=== PATIENT | female | born 1960 | race Caucasian/White ===

== ENCOUNTER 2021-10-07 16:11 | Inpatient (IN) | payer OTHER, SELFPAY ==
[2021-10-07 17:13] LABS: #Basophils 0.1 10x3/uL (0.0-0.2); #Monocytes 1.2 10x3/uL (0.0-1.1); #Neutrophils 11.6 10x3/uL (1.5-8.4); %Basophils 0.6 % (0.0-2.0); %Eosinophils 0.1 % (0.0-6.0); %Monocytes 8.1 % (0.0-10.0); %Neutrophils 78.6 % (40.0-75.0); Hemoglobin 6.5 g/dL (12.0-15.5); Mean Corpuscular HGB CONC 28.6 g/dL (32.0-36.0); Mean Corpuscular Hemoglobin 24.3 pg (27.0-33.0); Mean Corpuscular Volume 84.7 fl (81.6-98.3); Mean Platelet Volume 9.7 fl (7.4-10.4); Platelet Count 340 10x3/uL (150-450); Red Blood Cell (RBC) Count 2.68 10x6/uL (3.90-5.03); White Blood Cell (WBC) Count 14.8 10x3/uL (3.5-10.5)
[2021-10-07 17:23] LABS: INR-International Normal Ratio 1.3; PTT 24.7 sec (22.0-33.0)
[2021-10-07 17:29] LABS: ALT (SGPT) 17 U/L (8-55); AST (SGOT) 48 U/L (5-34); Albumin 2.4 g/dL (3.5-5.0); Alkaline Phosphatase 112 U/L (40-110); Anion Gap 17 mmol/L (10-20); BUN (Urea Nitrogen) 25 mg/dL (9.8-20.1); Bilirubin, Total 2.1 mg/dL (0.2-1.2); Calc. Creatinine Clearance 0 mL/min (70-130); Calcium 8.7 mg/dL (7.8-10.44); Carbon Dioxide 26 mmol/L (22-29); Chloride 98 mmol/L (98-107); Globulin 4.2 g/dL (2.4-3.5); Glucose 138 mg/dL (70-105); Iron 30 ug/dL (50-170); Iron Binding Capacity, Total 331 mcg/dL (265-497); Lipase 41 U/L (8-78); Potassium 4.7 mmol/L (3.5-5.1); Protein, Total 6.6 g/dL (6.0-8.3); Sodium 136 mmol/L (136-145)
[2021-10-07] MEDS ORDERED: Ondansetron PF 4 MG/2 ML Vial ONE (17:40)
[2021-10-07] MEDS ORDERED: Pantoprazole 40 MG VIAL ONE ×2 (17:41)
[2021-10-07 18:13] LABS: Anisocytosis SLIGHT = 6-15 cells (100X) (0-5/hpf); Hypochromia MODERATE=16-30 cells (100X) (0-5/hpf); Polychromasia SLIGHT = 2-3 cells (100X) (0-2/hpf)
[2021-10-07 18:14] LABS: Platelet Morphology Comment Appears Adequate; Stomatocytes SLIGHT = 2-5 cells (100X) (0-1/hpf)
[2021-10-07 22:49] LABS: Bilirubin Neg (Negative); Blood, Urine 25 (Negative); Clarity Clear (Clear); Glucose, Urine (Dipstick) Normal (Negative); Ketone, Urine 5 mg/dL (Negative); Leukocyte Negative (Negative); Nitrite Negative (Negative); Protein, Urine (Dipstick) 15 mg/dl (Neg-Trace); Urobilinogen Normal mg/dL (Less than 2)
[2021-10-07 23:10] LABS: Bacteria/HPF 3+ HPF (None Seen); Squamous Epithelial 0-3 HPF (0-3)
[2021-10-08] MEDS ORDERED: Pantoprazole 40 MG VIAL ONE (01:37)
[2021-10-08 01:57] LABS: Hemoglobin 6.5 g/dL (12.0-15.5)
[2021-10-08] MEDS ORDERED: Pantoprazole 80 MG, Admixture Fee 1 EACH in Sodium Chloride 0.9% 100 ML IVP SCH (02:00)
[2021-10-08] MEDS ORDERED: Octreotide Acetate 50 MCG/ML AMP SLOW IVP SCH (02:00)
[2021-10-08] MEDS ORDERED: Sodium Chloride 0.9% 1,000 ML IV SCH ×2 (02:00→06:00)
[2021-10-08 02:04] LABS: #Basophils 0.1 10x3/uL (0.0-0.2); #Monocytes 1.8 10x3/uL (0.0-1.1); #Neutrophils 11.5 10x3/uL (1.5-8.4); %Basophils 0.3 % (0.0-2.0); %Eosinophils 0.1 % (0.0-6.0); %Lymphocytes 17.2 % (18.0-47.0); %Monocytes 10.8 % (0.0-10.0); %Neutrophils 71.2 % (40.0-75.0); Hemoglobin 6.6 g/dL (12.0-15.5); Mean Corpuscular HGB CONC 29.9 g/dL (32.0-36.0); Mean Corpuscular Hemoglobin 25.3 pg (27.0-33.0); Mean Corpuscular Volume 84.7 fl (81.6-98.3); Mean Platelet Volume 9.7 fl (7.4-10.4); Platelet Count 273 10x3/uL (150-450); RBC Distribution Width 18.2 % (11.5-14.5); Red Blood Cell (RBC) Count 2.61 10x6/uL (3.90-5.03); White Blood Cell (WBC) Count 16.2 10x3/uL (3.5-10.5)
[2021-10-08 02:43] LABS: Anion Gap 14 mmol/L (10-20); BUN (Urea Nitrogen) 28 mg/dL (9.8-20.1); Calc. Creatinine Clearance 0 mL/min (70-130); Carbon Dioxide 26 mmol/L (22-29); Chloride 100 mmol/L (98-107); Glucose 122 mg/dL (70-105); Magnesium 2.4 mg/dL (1.6-2.6); Potassium 4.3 mmol/L (3.5-5.1); Sodium 136 mmol/L (136-145)
[2021-10-08] MEDS: Octreotide Acetate 1,250 MCG in Sodium Chloride 0.9% 250 ML 250 ML IVPB SCH (03:15)
[2021-10-08] MEDS ORDERED: Octreotide Acetate 50 MCG/ML AMP ONE (03:17)
[2021-10-08] MEDS ORDERED: cefTRIAXone\\ROCEPHIN 1 GM VIAL ONE (03:37)
[2021-10-08] MEDS: cefTRIAXone\\ROCEPHIN 1 GM in Sodium Chloride 0.9% 100 ML IVPB SCH (03:38)
[2021-10-08] MEDS ORDERED: Albumin 25% 25 GM/100 ML BOT IVPB SCH (08:15)
[2021-10-08 09:09] LABS: D-Dimer Test 3.52 mg/L FEU (0.19-0.50)
[2021-10-08 10:08] LABS: #Basophils 0.1 10x3/uL (0.0-0.2); #Monocytes 1.7 10x3/uL (0.0-1.1); #Neutrophils 10.6 10x3/uL (1.5-8.4); %Basophils 0.5 % (0.0-2.0); %Eosinophils 0.1 % (0.0-6.0); %Lymphocytes 15.7 % (18.0-47.0); %Monocytes 11.2 % (0.0-10.0); Hemoglobin 8.5 g/dL (12.0-15.5); Mean Corpuscular HGB CONC 32.1 g/dL (32.0-36.0); Mean Corpuscular Hemoglobin 27.2 pg (27.0-33.0); Mean Corpuscular Volume 84.7 fl (81.6-98.3); Mean Platelet Volume 9.8 fl (7.4-10.4); Platelet Count 229 10x3/uL (150-450); RBC Distribution Width 16.9 % (11.5-14.5); Red Blood Cell (RBC) Count 3.13 10x6/uL (3.90-5.03); White Blood Cell (WBC) Count 14.8 10x3/uL (3.5-10.5)
[2021-10-08 10:14] LABS: Anion Gap 12 mmol/L (10-20); BUN (Urea Nitrogen) 29 mg/dL (9.8-20.1); Calc. Creatinine Clearance 0 mL/min (70-130); Carbon Dioxide 27 mmol/L (22-29); Chloride 101 mmol/L (98-107); Glucose 128 mg/dL (70-105); Potassium 4.2 mmol/L (3.5-5.1); Sodium 136 mmol/L (136-145)
[2021-10-08 10:48] LABS: SARS-CoV-2 NAA Rapid Test Not Detected (NotDetected)
[2021-10-08] MEDS ORDERED: PROPOFOL 20 ML ONE (10:52)
[2021-10-08] MEDS ORDERED: Succinylcholine 200 MG/10 ml SYRINGE FS ONE (11:09)
[2021-10-08] MEDS ORDERED: EPINEPHrine 1 MG/10 ML Abboject SYRINGE ONE (11:18)
[2021-10-08] MEDS ORDERED: Fentanyl 100 MCG/2 ML VIAL ONE ×3 (11:39→13:19)
[2021-10-08] MEDS ORDERED: Lidocaine 1% PF 5 ML VIAL ONE (15:15)
[2021-10-08] MEDS ORDERED: Sodium Bicarbonate 2.5 MEQ/5 ML VIAL ONE (15:16)
[2021-10-08 17:34] LABS: BF Color Yellow; Body Fluid Source Paracentesis Fluid; Clarity Clear (Clear); Tube # EDTA
[2021-10-08 18:46] LABS: BF Segmented Neutrophils 7 %; Cell Count Non Hematic 85 %; Lymphocytes 8 %
[2021-10-08] MEDS: Pantoprazole 40 MG VIAL IVP SCH (21:24)
[2021-10-08 22:28] VITALS: BMI 38.0
[2021-10-08] MEDS: Sodium Chloride 0.9% 1,000 ML IV SCH ×2 (22:50→23:01)
[2021-10-08] MEDS ORDERED: Fentanyl 100 MCG/2 ML VIAL SLOW IVP SCH (23:00)
[2021-10-09] MEDS: cefTRIAXone\\ROCEPHIN 1 GM in Sodium Chloride 0.9% 100 ML IVPB SCH (01:19)
[2021-10-09] MEDS ORDERED: Simethicone Chewable 80 MG TAB PO SCH (04:15)
[2021-10-09 05:23] LABS: Hep B Surf Ag Non-Reactive S/CO (NonReactive)
[2021-10-09 05:26] LABS: ALT (SGPT) 23 U/L (8-55); AST (SGOT) 60 U/L (5-34); Albumin 2.3 g/dL (3.5-5.0); Alkaline Phosphatase 77 U/L (40-110); Bilirubin, Direct 1.2 mg/dL (0.1-0.3); Bilirubin, Total 1.8 mg/dL (0.2-1.2); Protein, Total 5.2 g/dL (6.0-8.3)
[2021-10-09 05:34] LABS: ALT (SGPT) 24 U/L (8-55); AST (SGOT) 60 U/L (5-34); Albumin 2.2 g/dL (3.5-5.0); Alkaline Phosphatase 78 U/L (40-110); Anion Gap 12 mmol/L (10-20); BUN (Urea Nitrogen) 29 mg/dL (9.8-20.1); Bilirubin, Total 1.8 mg/dL (0.2-1.2); Calc. Creatinine Clearance 89 mL/min (70-130); Calcium 7.7 mg/dL (7.8-10.44); Carbon Dioxide 24 mmol/L (22-29); Chloride 103 mmol/L (98-107); Glucose 149 mg/dL (70-105); Protein, Total 5.2 g/dL (6.0-8.3); Sodium 135 mmol/L (136-145)
[2021-10-09 05:51] LABS: #Monocytes 0.8 10x3/uL (0.0-1.1); #Neutrophils 6.4 10x3/uL (1.5-8.4); %Basophils 0.2 % (0.0-2.0); %Lymphocytes 14.2 % (18.0-47.0); %Monocytes 9.8 % (0.0-10.0); %Neutrophils 75.3 % (40.0-75.0); Hemoglobin 7.3 g/dL (12.0-15.5); Mean Corpuscular HGB CONC 32.9 g/dL (32.0-36.0); Mean Corpuscular Hemoglobin 28.7 pg (27.0-33.0); Mean Corpuscular Volume 87.4 fl (81.6-98.3); Mean Platelet Volume 9.9 fl (7.4-10.4); Platelet Count 125 10x3/uL (150-450); RBC Distribution Width 17.4 % (11.5-14.5); Red Blood Cell (RBC) Count 2.54 10x6/uL (3.90-5.03); White Blood Cell (WBC) Count 8.5 10x3/uL (3.5-10.5)
[2021-10-09] MEDS: Pantoprazole 40 MG VIAL IVP SCH ×2 (06:45→18:09)
[2021-10-09 06:53] LABS: HBSAg Index 0.22 S/CO (0-0.99)
[2021-10-09] MEDS: Sodium Chloride 0.9% 1,000 ML IV SCH (16:35)
[2021-10-09] MEDS: Octreotide Acetate 1,250 MCG in Sodium Chloride 0.9% 250 ML 250 ML IVPB SCH (17:11)
[2021-10-09] MEDS: traMADol HCl 50 MG TAB PO PRN (21:26)
[2021-10-10] MEDS: cefTRIAXone\\ROCEPHIN 1 GM in Sodium Chloride 0.9% 100 ML IVPB SCH (01:01)
[2021-10-10] MEDS: traMADol HCl 50 MG TAB PO PRN ×4 (01:09→21:26)
[2021-10-10 04:41] LABS: Platelet Count 105 10x3/uL (150-450)
[2021-10-10 04:42] LABS: #Monocytes 0.5 10x3/uL (0.0-1.1); #Neutrophils 3.9 10x3/uL (1.5-8.4); %Basophils 0.5 % (0.0-2.0); %Eosinophils 1.2 % (0.0-6.0); %Lymphocytes 18.9 % (18.0-47.0); %Monocytes 9.3 % (0.0-10.0); %Neutrophils 70.2 % (40.0-75.0); Hemoglobin 7.3 g/dL (12.0-15.5); Mean Corpuscular HGB CONC 31.5 g/dL (32.0-36.0); Mean Corpuscular Hemoglobin 27.8 pg (27.0-33.0); Mean Platelet Volume 9.4 fl (7.4-10.4); RBC Distribution Width 17.6 % (11.5-14.5); Red Blood Cell (RBC) Count 3.17 10x6/uL (3.90-5.03); White Blood Cell (WBC) Count 5.6 10x3/uL (3.5-10.5)
[2021-10-10 04:54] LABS: Anion Gap 10 mmol/L (10-20); BUN (Urea Nitrogen) 21 mg/dL (9.8-20.1); Calc. Creatinine Clearance 107 mL/min (70-130); Calcium 7.7 mg/dL (7.8-10.44); Carbon Dioxide 27 mmol/L (22-29); Chloride 105 mmol/L (98-107); Glucose 114 mg/dL (70-105); Potassium 3.6 mmol/L (3.5-5.1); Sodium 138 mmol/L (136-145)
[2021-10-10] MEDS: Sodium Chloride 0.9% 1,000 ML IV SCH ×2 (06:14→17:43)
[2021-10-10] MEDS: Pantoprazole 40 MG VIAL IVP SCH ×2 (06:17→21:28)
[2021-10-10 13:18] LABS: Hep B Core Total Ab Non-Reactive (NonReactive); Hep B Core Total Index 0.12 S/CO (0-0.79)
[2021-10-10 13:19] LABS: HBSAB Concentration Less than 8.00 mIU/mL; Hep B Surf AB Non-Reactive (NonReactive)
[2021-10-10 13:20] LABS: HBCM Index 0.23 S/CO (0-0.79); Hepatitis B Core IgM Abs Non-Reactive (NonReactive)
[2021-10-10 15:25] LABS: ANA Symphony (Qualitative) Negative (Negative); ANA Symphony (Quantitative) 0.6 Ratio (< 0.7 Negative); EliA Vaculitis New Method **** NEW METHOD ****; Mitochondrial Ab 2.7 U/mL (<4 Negative)
[2021-10-10] MEDS: Chlorhexidine Gluconate 15 ML UDCUP SSP SCH (21:35)
[2021-10-10] MEDS: Octreotide Acetate 1,250 MCG in Sodium Chloride 0.9% 250 ML 250 ML IVPB SCH (22:43)
[2021-10-11] MEDS: cefTRIAXone\\ROCEPHIN 1 GM in Sodium Chloride 0.9% 100 ML IVPB SCH (01:53)
[2021-10-11] MEDS: traMADol HCl 50 MG TAB PO PRN ×5 (02:00→18:20)
[2021-10-11 04:16] LABS: #Basophils 0.1 10x3/uL (0.0-0.2); #Eosinphils 0.3 10x3/uL (0.0-0.5); #Monocytes 0.8 10x3/uL (0.0-1.1); #Neutrophils 4.8 10x3/uL (1.5-8.4); %Basophils 0.7 % (0.0-2.0); %Eosinophils 4.8 % (0.0-6.0); %Lymphocytes 16.7 % (18.0-47.0); %Monocytes 10.8 % (0.0-10.0); %Neutrophils 66.7 % (40.0-75.0); Hemoglobin 7.6 g/dL (12.0-15.5); Mean Corpuscular HGB CONC 31.3 g/dL (32.0-36.0); Mean Corpuscular Hemoglobin 28.1 pg (27.0-33.0); Mean Platelet Volume 9.6 fl (7.4-10.4); Platelet Count 101 10x3/uL (150-450); RBC Distribution Width 17.5 % (11.5-14.5); White Blood Cell (WBC) Count 7.1 10x3/uL (3.5-10.5)
[2021-10-11 04:37] LABS: Anion Gap 9 mmol/L (10-20); BUN (Urea Nitrogen) 14 mg/dL (9.8-20.1); Calc. Creatinine Clearance 120 mL/min (70-130); Calcium 7.5 mg/dL (7.8-10.44); Carbon Dioxide 27 mmol/L (22-29); Chloride 105 mmol/L (98-107); Glucose 140 mg/dL (70-105); Potassium 3.7 mmol/L (3.5-5.1); Sodium 137 mmol/L (136-145)
[2021-10-11] MEDS: Pantoprazole 40 MG VIAL IVP SCH ×2 (10:08→18:21)
[2021-10-11] MEDS: Spironolactone 25 MG TAB PO SCH (10:08)
[2021-10-11] MEDS: Furosemide 20 MG TAB PO SCH (10:08)
[2021-10-11] MEDS: Chlorhexidine Gluconate 15 ML UDCUP SSP SCH ×2 (10:12→21:02)
[2021-10-11 13:17] LABS: HCV log10 5.749 (.); Hep C PCR-Quant 561000 IU/mL (.)
[2021-10-11 14:18] LABS: Smooth Muscle Total ABS 9 Units (0-19)
[2021-10-11] MEDS: Sodium Chloride 0.9% 1,000 ML IV SCH ×2 (18:29→21:07)
[2021-10-12] MEDS: cefTRIAXone\\ROCEPHIN 1 GM in Sodium Chloride 0.9% 100 ML IVPB SCH (03:07)
[2021-10-12 06:02] LABS: Anion Gap 9 mmol/L (10-20); BUN (Urea Nitrogen) 10 mg/dL (9.8-20.1); Calc. Creatinine Clearance 128 mL/min (70-130); Calcium 7.3 mg/dL (7.8-10.44); Carbon Dioxide 27 mmol/L (22-29); Chloride 105 mmol/L (98-107); Glucose 125 mg/dL (70-105); Potassium 3.6 mmol/L (3.5-5.1); Sodium 137 mmol/L (136-145)
[2021-10-12 07:10] LABS: #Eosinphils 0.4 10x3/uL (0.0-0.5); #Monocytes 0.7 10x3/uL (0.0-1.1); #Neutrophils 4.2 10x3/uL (1.5-8.4); %Basophils 0.6 % (0.0-2.0); %Eosinophils 6.5 % (0.0-6.0); %Lymphocytes 18.3 % (18.0-47.0); %Monocytes 10.2 % (0.0-10.0); %Neutrophils 64.2 % (40.0-75.0); Hemoglobin 7.4 g/dL (12.0-15.5); Mean Corpuscular HGB CONC 31.6 g/dL (32.0-36.0); Mean Corpuscular Hemoglobin 27.8 pg (27.0-33.0); Mean Platelet Volume 9.7 fl (7.4-10.4); Platelet Count 101 10x3/uL (150-450); RBC Distribution Width 17.4 % (11.5-14.5); Red Blood Cell (RBC) Count 2.66 10x6/uL (3.90-5.03); White Blood Cell (WBC) Count 6.5 10x3/uL (3.5-10.5)
[2021-10-12] MEDS: traMADol HCl 50 MG TAB PO PRN ×3 (08:59→22:39)
[2021-10-12] MEDS: Furosemide 20 MG TAB PO SCH (09:00)
[2021-10-12] MEDS: Chlorhexidine Gluconate 15 ML UDCUP SSP SCH ×2 (09:02→22:37)
[2021-10-12] MEDS: Pantoprazole 40 MG VIAL IVP SCH ×2 (09:02→22:35)
[2021-10-12] MEDS: Spironolactone 25 MG TAB PO SCH (09:02)
[2021-10-12] MEDS: Nadolol 40 MG TAB PO SCH (09:03)
[2021-10-12] MEDS: Clindamycin 150 MG CAP PO SCH ×2 (16:19→22:37)
[2021-10-12] MEDS: Sodium Chloride 0.9% 1,000 ML IV SCH (17:42)
[2021-10-12] MEDS ORDERED: Iron, Sodium Ferric Gluconate 250 MG in Sodium Chloride 0.9% 250 ML 250 ML IVPB SCH (21:30)
[2021-10-12] MEDS: Cefdinir 300 MG CAP PO SCH ×2 (22:37→23:12)
[2021-10-13] MEDS: Clindamycin 150 MG CAP PO SCH ×4 (01:38→21:52)
[2021-10-13 05:47] LABS: #Basophils 0.1 10x3/uL (0.0-0.2); #Eosinphils 0.6 10x3/uL (0.0-0.5); #Monocytes 0.8 10x3/uL (0.0-1.1); #Neutrophils 4.7 10x3/uL (1.5-8.4); %Basophils 0.8 % (0.0-2.0); %Lymphocytes 18.5 % (18.0-47.0); %Monocytes 10.2 % (0.0-10.0); %Neutrophils 62.1 % (40.0-75.0); Anion Gap 10 mmol/L (10-20); BUN (Urea Nitrogen) 9 mg/dL (9.8-20.1); Calc. Creatinine Clearance 151 mL/min (70-130); Calcium 7.4 mg/dL (7.8-10.44); Carbon Dioxide 26 mmol/L (22-29); Chloride 105 mmol/L (98-107); Glucose 107 mg/dL (70-105); Hemoglobin 7.8 g/dL (12.0-15.5); Mean Corpuscular HGB CONC 30.4 g/dL (32.0-36.0); Mean Corpuscular Hemoglobin 26.7 pg (27.0-33.0); Mean Platelet Volume 9.9 fl (7.4-10.4); Platelet Count 120 10x3/uL (150-450); Potassium 3.7 mmol/L (3.5-5.1); RBC Distribution Width 17.5 % (11.5-14.5); Red Blood Cell (RBC) Count 2.92 10x6/uL (3.90-5.03); Sodium 137 mmol/L (136-145); White Blood Cell (WBC) Count 7.6 10x3/uL (3.5-10.5)
[2021-10-13] MEDS: Pantoprazole 40 MG VIAL IVP SCH ×2 (06:29→21:43)
[2021-10-13] MEDS: traMADol HCl 50 MG TAB PO PRN ×2 (12:14→21:51)
[2021-10-13] MEDS: Chlorhexidine Gluconate 15 ML UDCUP SSP SCH ×2 (12:15→21:51)
[2021-10-13] MEDS: Nadolol 40 MG TAB PO SCH (12:15)
[2021-10-13] MEDS: Saccharomyces boulardii 250 MG CAP PO SCH (12:16)
[2021-10-13] MEDS: Spironolactone 25 MG TAB PO SCH (12:16)
[2021-10-13] MEDS: Furosemide 20 MG TAB PO SCH (12:16)
[2021-10-13] MEDS: Cefdinir 300 MG CAP PO SCH (12:16)
[2021-10-13] MEDS: Sulfameth/Trimethoprim DS 800-160mg TAB PO SCH (21:52)
[2021-10-14] MEDS: Clindamycin 150 MG CAP PO SCH ×2 (02:42→08:24)
[2021-10-14 05:49] LABS: #Basophils 0.1 10x3/uL (0.0-0.2); #Eosinphils 0.7 10x3/uL (0.0-0.5); #Monocytes 1.1 10x3/uL (0.0-1.1); #Neutrophils 6.9 10x3/uL (1.5-8.4); %Basophils 0.9 % (0.0-2.0); %Eosinophils 6.9 % (0.0-6.0); %Lymphocytes 16.4 % (18.0-47.0); %Monocytes 10.1 % (0.0-10.0); %Neutrophils 65.2 % (40.0-75.0); Hemoglobin 8.3 g/dL (12.0-15.5); Mean Corpuscular HGB CONC 30.1 g/dL (32.0-36.0); Mean Corpuscular Hemoglobin 26.6 pg (27.0-33.0); Mean Corpuscular Volume 88.5 fl (81.6-98.3); Mean Platelet Volume 10.2 fl (7.4-10.4); Platelet Count 172 10x3/uL (150-450); RBC Distribution Width 17.9 % (11.5-14.5); Red Blood Cell (RBC) Count 3.12 10x6/uL (3.90-5.03); White Blood Cell (WBC) Count 10.6 10x3/uL (3.5-10.5)
[2021-10-14 06:00] LABS: Anion Gap 11 mmol/L (10-20); BUN (Urea Nitrogen) 9 mg/dL (9.8-20.1); Calc. Creatinine Clearance 142 mL/min (70-130); Calcium 7.6 mg/dL (7.8-10.44); Carbon Dioxide 26 mmol/L (22-29); Chloride 103 mmol/L (98-107); Glucose 123 mg/dL (70-105); Magnesium 1.5 mg/dL (1.6-2.6); Phosphorus 2.2 mg/dL (2.3-4.7); Potassium 3.6 mmol/L (3.5-5.1); Sodium 136 mmol/L (136-145)
[2021-10-14] MEDS ORDERED: Furosemide 20 MG TAB ONE (07:56)
[2021-10-14] MEDS ORDERED: Magnesium 2 GM/50 ML BAG (IN WATER) ONE (07:58)
[2021-10-14] MEDS ORDERED: Calcium Carbonate 500 MG TAB PO SCH (08:00)
[2021-10-14] MEDS: Magnesium 2 GM/50 ML 2 GM in Premix Bag 1 BAG IVPB SCH ×2 (08:11→12:03)
[2021-10-14] MEDS: Chlorhexidine Gluconate 15 ML UDCUP SSP SCH (08:11)
[2021-10-14] MEDS: Saccharomyces boulardii 250 MG CAP PO SCH (08:11)
[2021-10-14] MEDS: Nadolol 40 MG TAB PO SCH (08:11)
[2021-10-14] MEDS: Sulfameth/Trimethoprim DS 800-160mg TAB PO SCH (08:12)
[2021-10-14] MEDS: traMADol HCl 50 MG TAB PO PRN ×2 (08:12→12:10)
[2021-10-14] MEDS: Furosemide 20 MG TAB PO SCH (08:14)
[2021-10-14] MEDS: Spironolactone 25 MG TAB PO SCH (08:14)
[2021-10-14 08:42] VITALS: BP 110/65; TEMP 98.5
[2021-10-14] MEDS ORDERED: PHOS-NAK 1 PKT PACK PO SCH (09:00)
[2021-10-15 15:13] LABS: Alpha-1-Antitrypsin 158 mg/dL (101-187)
== END 2021-10-14 12:39 | disposition home or self-care (01) | DRG 432 ==
LOC: CSHERS 16:11 → CSHERHOLD 21:37 → CSHTELE 10-08 17:06
PROVIDERS: ADMIT Family Medicine; ATTEND Family Medicine
PROC: 30233N1 Transfusion of Nonautologous Red Blood Cells into Peripheral Vein, Percutaneous Approach (ICD-10-PCS; 2021-10-07)
PROC: 0W9G3ZZ Drainage of Peritoneal Cavity, Percutaneous Approach (ICD-10-PCS; principal; 2021-10-08)
PROC: 0D578ZZ Destruction of Stomach, Pylorus, Via Natural or Artificial Opening Endoscopic (ICD-10-PCS; 2021-10-08)
PROC: 3E0G8GC Introduction of Other Therapeutic Substance into Upper GI, Via Natural or Artificial Opening Endoscopic (ICD-10-PCS; 2021-10-08)
PROC: 0DB78ZX Excision of Stomach, Pylorus, Via Natural or Artificial Opening Endoscopic, Diagnostic (ICD-10-PCS; 2021-10-08)
PROC: 06L38CZ Occlusion of Esophageal Vein with Extraluminal Device, Via Natural or Artificial Opening Endoscopic (ICD-10-PCS; 2021-10-08)
DX: K74.60 Unspecified cirrhosis of liver (principal); I85.11 Secondary esophageal varices with bleeding; R57.1 Hypovolemic shock; K22.6 Gastro-esophageal laceration-hemorrhage syndrome; N17.9 Acute kidney failure, unspecified; K76.6 Portal hypertension; R18.8 Other ascites; D62 Acute posthemorrhagic anemia; J45.909 Unspecified asthma, uncomplicated; K04.7 Periapical abscess without sinus; K25.9 Gastric ulcer, unspecified as acute or chronic, without hemorrhage or perforation; K31.89 Other diseases of stomach and duodenum; B18.2 Chronic viral hepatitis C; Z20.822 Contact with and (suspected) exposure to COVID-19; Z98.51 Tubal ligation status; Z79.899 Other long term (current) drug therapy
CPT/HCPCS: 36415; 36430; 49083; 70491; 71045; 74177; 74183; 80048; 80053; 81003; 81015; 82042; 82103; 82104; 82105; 82390; 82728; 83516; 83540; 83550; 83690; 83735; 83880; 84100; 84157; 84484; 85014; 85018; 85025; 85379; 85384; 85610; 85730; 86038; 86225; 86704; 86705; 86706; 86708; 86850; 86900; 86901; 86922; 87070; 87205; 87340; 87522; 87902; 88112; 88305; 88312; 89051; 93005; 94760; C9113; J0171; J0696; J2354; J2405; J2704; J2916; J3010; J3475; J3490; J7050; P9016; P9047; U0002

== ENCOUNTER 2023-07-12 10:10 | Inpatient (IN) | payer SELFPAY ==
[2023-07-12] MEDS ORDERED: Pantoprazole 40 MG VIAL ONE (10:49)
[2023-07-12] MEDS ORDERED: Metoclopramide HCl 10 MG/2 ML VIAL ONE (10:49)
[2023-07-12] MEDS ORDERED: Iopamidol 300 61% 100 ML VIAL FS ONE (10:54)
[2023-07-12 11:46] LABS: ALT (SGPT) 38 U/L (8-55); AST (SGOT) 95 U/L (5-34); Albumin 3.4 g/dL (3.4-4.8); Alkaline Phosphatase 107 U/L (40-110); Anion Gap 17 mmol/L (10-20); BUN (Urea Nitrogen) 33 mg/dL (9.8-20.1); Bilirubin, Total 2.4 mg/dL (0.2-1.2); Calc. Creatinine Clearance 0 mL/min (70-130); Calcium 8.9 mg/dL (7.8-10.44); Carbon Dioxide 21 mmol/L (23-31); Chloride 106 mmol/L (98-107); Estimated GFR 96; Globulin 4.1 g/dL (2.4-3.5); Glucose 135 mg/dL (80-115); Lipase 57 U/L (8-78); Magnesium 1.6 mg/dL (1.6-2.6); Potassium 4.3 mmol/L (3.5-5.1); Protein, Total 7.5 g/dL (5.8-8.1); Sodium 140 mmol/L (136-145)
[2023-07-12 11:57] LABS: #Basophils 0.1 10x3/uL (0.0-0.2); #Monocytes 0.4 10x3/uL (0.0-1.1); #Neutrophils 4.7 10x3/uL (1.5-8.4); %Basophils 0.8 % (0.0-2.0); %Eosinophils 0.5 % (0.0-6.0); %Lymphocytes 11.6 % (18.0-47.0); %Monocytes 6.7 % (0.0-10.0); %Neutrophils 80.1 % (40.0-75.0); Hematocrit 30.6 % (34.9-44.5); Hemoglobin 10.2 g/dL (12.0-15.5); Mean Corpuscular HGB CONC 33.3 g/dL (32.0-36.0); Mean Corpuscular Hemoglobin 31.6 pg (27.0-33.0); Mean Corpuscular Volume 93.4 fl (81.6-98.3); Platelet Count 110 10x3/uL (150-450); Red Blood Cell (RBC) Count 3.23 10x6/uL (3.90-5.03); White Blood Cell (WBC) Count 5.9 10x3/uL (3.5-10.5)
[2023-07-12 11:58] LABS: Mean Platelet Volume 10.2 fl (7.4-10.4)
[2023-07-12] MEDS ORDERED: Octreotide Acetate 50 MCG/ML AMP ONE ×2 (12:08→12:09)
[2023-07-12] MEDS ORDERED: cefTRIAXone (ROCEPHIN) 1 GM VIAL ONE (12:08)
[2023-07-12 12:11] LABS: INR-International Normal Ratio 1.2; PTT 35.1 sec (22.0-33.0)
[2023-07-12] MEDS ORDERED: Octreotide Acetate 1,250 MCG in Sodium Chloride 0.9% 250 ML 250 ML IVPB SCH (12:15)
[2023-07-12] MEDS ORDERED: Ondansetron PF 4 MG/2 ML Vial IVP PRN (15:09)
[2023-07-12] MEDS ORDERED: HYDROcodone/Acetaminophen 5/325 mg Tablet PO PRN (15:09)
[2023-07-12] MEDS ORDERED: Calcium Carbonate 500 MG ChewTAB PO PRN (15:09)
[2023-07-12 15:43] LABS: Hematocrit 28.9 % (34.9-44.5); Hemoglobin 9.4 g/dL (12.0-15.5)
[2023-07-12] MEDS ORDERED: PROPOFOL 20 ML ONE ×3 (15:54→16:26)
[2023-07-12] MEDS: Sodium Chloride 0.9% 1,000 ML IV SCH (17:20)
[2023-07-12 17:22] VITALS: BMI 41.6
[2023-07-12 20:09] LABS: Anion Gap 15 mmol/L (10-20); BUN (Urea Nitrogen) 27 mg/dL (9.8-20.1); Calc. Creatinine Clearance 138 mL/min (70-130); Calcium 8.5 mg/dL (7.8-10.44); Carbon Dioxide 24 mmol/L (23-31); Chloride 106 mmol/L (98-107); Estimated GFR 96; Glucose 146 mg/dL (80-115); Potassium 4.6 mmol/L (3.5-5.1); Sodium 140 mmol/L (136-145)
[2023-07-12] MEDS: Pantoprazole 40 MG VIAL IVP SCH (21:21)
[2023-07-12 23:23] LABS: Anion Gap 15 mmol/L (10-20); BUN (Urea Nitrogen) 26 mg/dL (9.8-20.1); Calc. Creatinine Clearance 142 mL/min (70-130); Calcium 8.3 mg/dL (7.8-10.44); Carbon Dioxide 22 mmol/L (23-31); Chloride 108 mmol/L (98-107); Estimated GFR 98; Glucose 139 mg/dL (80-115); Potassium 4.3 mmol/L (3.5-5.1); Sodium 141 mmol/L (136-145)
[2023-07-13 03:34] LABS: ALT (SGPT) 33 U/L (8-55); AST (SGOT) 90 U/L (5-34); Albumin 2.8 g/dL (3.4-4.8); Alkaline Phosphatase 84 U/L (40-110); Anion Gap 11 mmol/L (10-20); BUN (Urea Nitrogen) 24 mg/dL (9.8-20.1); Bilirubin, Total 1.8 mg/dL (0.2-1.2); Calc. Creatinine Clearance 144 mL/min (70-130); Calcium 8.3 mg/dL (7.8-10.44); Carbon Dioxide 26 mmol/L (23-31); Chloride 107 mmol/L (98-107); Estimated GFR 98; Globulin 3.4 g/dL (2.4-3.5); Glucose 126 mg/dL (80-115); Potassium 4.3 mmol/L (3.5-5.1); Protein, Total 6.2 g/dL (5.8-8.1); Sodium 140 mmol/L (136-145)
[2023-07-13] MEDS: Sodium Chloride 0.9% 1,000 ML IV SCH (03:59)
[2023-07-13 05:07] LABS: #Eosinphils 0.1 10x3/uL (0.0-0.5); #Monocytes 0.5 10x3/uL (0.0-1.1); #Neutrophils 2.7 10x3/uL (1.5-8.4); %Basophils 0.7 % (0.0-2.0); %Eosinophils 2.2 % (0.0-6.0); %Lymphocytes 20.4 % (18.0-47.0); %Monocytes 11.5 % (0.0-10.0); %Neutrophils 64.5 % (40.0-75.0); Hematocrit 26.2 % (34.9-44.5); Hemoglobin 8.4 g/dL (12.0-15.5); Mean Corpuscular HGB CONC 32.1 g/dL (32.0-36.0); Mean Corpuscular Hemoglobin 30.8 pg (27.0-33.0); Mean Platelet Volume 10.4 fl (7.4-10.4); Platelet Count 73 10x3/uL (150-450); RBC Distribution Width 15.6 % (11.5-14.5); Red Blood Cell (RBC) Count 2.73 10x6/uL (3.90-5.03); White Blood Cell (WBC) Count 4.2 10x3/uL (3.5-10.5)
[2023-07-13] MEDS: Saccharomyces boulardii 250 MG CAP PO SCH (08:55)
[2023-07-13] MEDS: Spironolactone 25 MG TAB PO SCH (08:55)
[2023-07-13] MEDS: Nadolol 40 MG TAB PO SCH (08:55)
[2023-07-13] MEDS: Pantoprazole 40 MG VIAL IVP SCH ×2 (08:55→20:14)
[2023-07-13] MEDS: Furosemide 40 MG TAB PO SCH (08:55)
[2023-07-13] MEDS: Senokot S 8.6-50 MG TAB PO SCH ×2 (08:56→20:14)
[2023-07-13] MEDS ORDERED: Ferrous Sulfate 325 MG TAB PO SCH (09:00)
[2023-07-13] MEDS ORDERED: Octreotide Acetate 1,250 MCG in Sodium Chloride 0.9% 250 ML 250 ML IVPB SCH ×2 (09:00→09:15)
[2023-07-13] MEDS: cefTRIAXone\\ROCEPHIN 1 GM in Sodium Chloride 0.9% 100 ML IVPB SCH (11:36)
[2023-07-13] MEDS: Acetaminophen 325 MG TAB PO PRN (20:14)
[2023-07-14 04:57] LABS: #Eosinphils 0.3 10x3/uL (0.0-0.5); #Monocytes 0.6 10x3/uL (0.0-1.1); #Neutrophils 3.1 10x3/uL (1.5-8.4); %Basophils 0.8 % (0.0-2.0); %Eosinophils 5.3 % (0.0-6.0); %Lymphocytes 19.7 % (18.0-47.0); %Neutrophils 61.8 % (40.0-75.0); Hematocrit 27.9 % (34.9-44.5); Hemoglobin 9.2 g/dL (12.0-15.5); Mean Corpuscular Hemoglobin 31.6 pg (27.0-33.0); Mean Corpuscular Volume 95.9 fl (81.6-98.3); Mean Platelet Volume 10.5 fl (7.4-10.4); Platelet Count 92 10x3/uL (150-450); RBC Distribution Width 15.7 % (11.5-14.5); Red Blood Cell (RBC) Count 2.91 10x6/uL (3.90-5.03); White Blood Cell (WBC) Count 4.9 10x3/uL (3.5-10.5)
[2023-07-14 05:00] LABS: ALT (SGPT) 42 U/L (8-55); AST (SGOT) 130 U/L (5-34); Albumin 2.9 g/dL (3.4-4.8); Alkaline Phosphatase 88 U/L (40-110); Anion Gap 14 mmol/L (10-20); BUN (Urea Nitrogen) 21 mg/dL (9.8-20.1); Bilirubin, Total 2.2 mg/dL (0.2-1.2); Calc. Creatinine Clearance 127 mL/min (70-130); Calcium 8.5 mg/dL (7.8-10.44); Carbon Dioxide 27 mmol/L (23-31); Chloride 101 mmol/L (98-107); Estimated GFR 87; Globulin 3.7 g/dL (2.4-3.5); Glucose 109 mg/dL (80-115); Potassium 3.6 mmol/L (3.5-5.1); Protein, Total 6.6 g/dL (5.8-8.1); Sodium 138 mmol/L (136-145)
[2023-07-14 05:24] LABS: Anisocytosis SLIGHT = 6-15 cells (100X) (0-5/hpf)
[2023-07-14 05:25] LABS: Platelet Adequacy Comment Appears Decreased; Polychromasia SLIGHT = 2-3 cells (100X) (0-2/hpf); Small Platelets SLIGHT HPF (0-15)
[2023-07-14] MEDS: Pantoprazole 40 MG VIAL IVP SCH (08:24)
[2023-07-14] MEDS: Furosemide 40 MG TAB PO SCH (08:24)
[2023-07-14] MEDS: Saccharomyces boulardii 250 MG CAP PO SCH (08:24)
[2023-07-14] MEDS: Spironolactone 25 MG TAB PO SCH (08:24)
[2023-07-14] MEDS: Senokot S 8.6-50 MG TAB PO SCH ×2 (08:24→20:54)
[2023-07-14] MEDS: Nadolol 40 MG TAB PO SCH (09:48)
[2023-07-14] MEDS: cefTRIAXone\\ROCEPHIN 1 GM in Sodium Chloride 0.9% 100 ML IVPB SCH (13:00)
[2023-07-14] MEDS: Acetaminophen 325 MG TAB PO PRN (20:54)
[2023-07-15 05:40] VITALS: TEMP 98.4
[2023-07-15 05:58] LABS: Anion Gap 12 mmol/L (10-20); BUN (Urea Nitrogen) 20 mg/dL (9.8-20.1); Calc. Creatinine Clearance 123 mL/min (70-130); Calcium 8.3 mg/dL (7.8-10.44); Carbon Dioxide 30 mmol/L (23-31); Chloride 101 mmol/L (98-107); Estimated GFR 83; Glucose 123 mg/dL (80-115); Potassium 3.7 mmol/L (3.5-5.1); Sodium 139 mmol/L (136-145)
[2023-07-15 06:10] LABS: Hematocrit 29.5 % (34.9-44.5); Hemoglobin 9.8 g/dL (12.0-15.5); Mean Corpuscular HGB CONC 33.2 g/dL (32.0-36.0); Mean Corpuscular Hemoglobin 31.5 pg (27.0-33.0); Mean Corpuscular Volume 94.9 fl (81.6-98.3); Mean Platelet Volume 10.2 fl (7.4-10.4); Platelet Count 111 10x3/uL (150-450); RBC Distribution Width 15.9 % (11.5-14.5); Red Blood Cell (RBC) Count 3.11 10x6/uL (3.90-5.03)
[2023-07-15 06:11] LABS: Lymphocytes 27 % (21-51); Monocytes 8 % (0-10)
[2023-07-15 06:12] LABS: Anisocytosis SLIGHT = 6-15 cells (100X) (0-5/hpf); MDiff Complete? YES; Platelet Adequacy Comment Appears Decreased; Polychromasia SLIGHT = 2-3 cells (100X) (0-2/hpf)
[2023-07-15 06:13] LABS: Neutrophil 65 % (42-75)
[2023-07-15 09:20] VITALS: BP 132/62
[2023-07-15] MEDS: Furosemide 40 MG TAB PO SCH (09:36)
[2023-07-15] MEDS: Spironolactone 25 MG TAB PO SCH (09:36)
[2023-07-15] MEDS: Senokot S 8.6-50 MG TAB PO SCH (09:37)
[2023-07-15] MEDS: Saccharomyces boulardii 250 MG CAP PO SCH (09:37)
[2023-07-15] MEDS: Nadolol 40 MG TAB PO SCH (09:56)
== END 2023-07-15 10:32 | disposition home or self-care (01) | DRG 432 ==
LOC: CSHERS 10:10 → CSHTELE 14:43
PROVIDERS: ADMIT Family Medicine; ATTEND Family Medicine
PROC: 06L38CZ Occlusion of Esophageal Vein with Extraluminal Device, Via Natural or Artificial Opening Endoscopic (ICD-10-PCS; principal; 2023-07-12)
DX: K74.60 Unspecified cirrhosis of liver (principal); I85.11 Secondary esophageal varices with bleeding; D62 Acute posthemorrhagic anemia; K76.6 Portal hypertension; R18.8 Other ascites; I10 Essential (primary) hypertension; K21.9 Gastro-esophageal reflux disease without esophagitis; K31.89 Other diseases of stomach and duodenum; B18.2 Chronic viral hepatitis C; E78.5 Hyperlipidemia, unspecified; Z98.51 Tubal ligation status; Z98.890 Other specified postprocedural states; Z79.899 Other long term (current) drug therapy
CPT/HCPCS: 36415; 74177; 80048; 80053; 82274; 83605; 83690; 83735; 85025; 85610; 85730; 86850; 86900; 86901; 93005; 94760; 96365; 96366; 96367; 96375; 96376; C9113; J0696; J2354; J2704; J2765; J3490; J7050; Q9967